=== PATIENT | male | born 1975 | race Caucasian/White ===

== ENCOUNTER → 2020-11-17 10:34 | Outpatient (BNVA) | payer OTHER, MEDICAID, SELFPAY | PROVIDERS: PCP Nurse Practitioner Family; Visit Provider Surgery | DX: Z01.818 Encounter for other preprocedural examination (principal); E66.01 Morbid (severe) obesity due to excess calories; R06.02 Shortness of breath; Z68.45 Body mass index [BMI] 70 or greater, adult | CPT/HCPCS: 99202 ==

== ENCOUNTER → 2020-11-23 | Outpatient (REF) | payer OTHER, SELFPAY ==
[2020-11-22 09:20] VITALS: BMI 75.6
--- NOTE | 2020-11-22 09:41 | MHC.SHP ---
Pre-Procedural Eval Section B Chief Complaint: reflux Allergies: Allergies Allergy/AdvReac Type Severity Reaction Status Date / Time No Known Allergies Allergy Verified 11/17/20 11:37 Plan I have reviewed the history and physical and performed a pertinent physical examination on my patient. No changes have occurred unless specified.
--- NOTE | 2020-11-22 12:26 | HO.ANESPROP2 ---
HPI - Anesthesia Eval Consult details Narrative: 45yo M for Upper Endoscopy BMI = 75, Case reviewed with Dr Awad PENDING: EKG AND LABS ordered by Dr Costa outpatient. Needs preop per Dr Awad Pt no showed 11/23/20 [facility] Active Problems Active Problems: All Active Problems (Updated 11/17/20 @ 12:03 by Daniela Costa MD) Chest pain (Acute) BMI 70 and over, adult (Acute) SOB (shortness of breath) (Acute) Morbid obesity (Acute) Pre-op evaluation (Acute) Past Medical History Medical History (Updated 11/17/20 @ 12:03 by Daniela Costa MD) Chest pain Hypercholesterolemia Sleep apnea Type 2 diabetes mellitus Family History Family History (Updated 11/17/20 @ 10:56 by Denisse Quigley MA) Father No problems noted. Mother Acute arthritis Heart problem Hypertension Son No problems noted. Son No problems noted. Son No problems noted. Brother Super obese Sleep apnea Surgical History Surgical History (Updated 11/17/20 @ 10:54 by Denisse Quigley MA) History of sleeve gastrectomy Social History Social History (Updated 11/17/20 @ 10:56 by Denisse Quilgey MA) Alcohol intake: never Smoking Status: Never smoker Meds Allergies Allergy/AdvReac Type Severity Reaction Status Date / Time No Known Allergies Allergy Verified 11/17/20 11:37 Home Medications Medication Instructions Recorded Confirmed Last Taken Type ascorbic acid (vitamin C) 250 mg 250 mg PO DAILY 11/17/20 11/17/20 Unknown History tablet atorvastatin 40 mg tablet 40 mg PO DAILY 11/17/20 11/17/20 Unknown History calcium carbonate 200 mg calcium 200 mg PO BID 11/17/20 11/17/20 Unknown History (500 mg) chewable tablet calcium-vitamin D3-vitamin K 500 tab PO 11/17/20 11/17/20 Unknown History mg-200 unit-40 mcg tablet cholecalciferol (vitamin D3) 25 25 mcg PO DAILY 11/17/20 11/17/20 Unknown History mcg (1,000 unit) capsule mecobalamin (vitamin B12) 5,000 5,000 mcg PO DAILY 11/17/20 11/17/20 Unknown History mcg lozenge metformin 1,000 mg tablet 1,000 mg PO BID 11/17/20 11/17/20 Unknown History multivitamin with minerals-folic tab PO 11/17/20 11/17/20 Unknown History acid 200 mcg chewable tablet Exam Exam Date and Time: November 22, 2020 1226 Height,Weight and Vital Signs: Height 5 ft 9 in Weight 232.239 kg Assessment and Plan Assessment Anesthesia Assessment: Chart Reviewed
--- NOTE | 2020-11-22 14:13 | ECG_ITS ---
Test Reason : SOB Blood Pressure : / mmHG Vent. Rate : 078 BPM Atrial Rate : 078 BPM P-R Int : 146 ms QRS Dur : 098 ms QT Int : 370 ms P-R-T Axes : 047 046 035 degrees QTc Int : 421 ms Normal sinus rhythm Normal ECG No previous ECGs available Referred By: Daniela Vann Electronically Signed By:Beto Villeda
== END ==
LOC: HO.CARD
PROVIDERS: PCP Physician Assistant Medical; Visit Provider Surgery
DX: R06.02 Shortness of breath (principal)
CPT/HCPCS: 93005; J2250; J3010

== ENCOUNTER 2020-11-30 06:10 | Day surgery (SDC) | payer OTHER, SELFPAY ==
--- NOTE | 2020-11-29 10:00 | HO.ANESPROP2 ---
Documented by User: Sonja Patel 11/29/20 10:01 HPI - Anesthesia Eval Consult details Narrative: 45yo M for Upper Endoscopy BMI = 75, Case reviewed with Dr Ritesh KNAPP Active Problems Active Problems: All Active Problems (Updated 11/17/20 @ 12:03 by Daniela Vann MD) Chest pain (Acute) BMI 70 and over, adult (Acute) SOB (shortness of breath) (Acute) Morbid obesity (Acute) Pre-op evaluation (Acute) Past Medical History Medical History (Updated 11/30/20 @ 07:43 by Zainab Dooley) Chest pain Hypercholesterolemia Sleep apnea Type 2 diabetes mellitus Family History Family History Father No problems noted. Mother Acute arthritis Heart problem Hypertension Son No problems noted. Son No problems noted. Son No problems noted. Brother Super obese Sleep apnea Surgical History Surgical History History of sleeve gastrectomy Social History Social History Alcohol intake: never Smoking Status: Never smoker Use of substances other than those prescribed or required for medical reasons: No Advance Directives: No Advance Directives Information Provided: Yes Meds Allergies Allergy/AdvReac Type Severity Reaction Status Date / Time No Known Allergies Allergy Verified 11/17/20 11:37 Home Medications Medication Instructions Recorded Confirmed Last Taken Type ascorbic acid (vitamin C) 250 mg 250 mg PO DAILY 11/17/20 11/17/20 Unknown History tablet atorvastatin 40 mg tablet 40 mg PO DAILY 11/17/20 11/17/20 Unknown History calcium carbonate 200 mg calcium 200 mg PO BID 11/17/20 11/17/20 Unknown History (500 mg) chewable tablet calcium-vitamin D3-vitamin K 500 tab PO 11/17/20 11/17/20 Unknown History mg-200 unit-40 mcg tablet cholecalciferol (vitamin D3) 25 25 mcg PO DAILY 11/17/20 11/17/20 Unknown History mcg (1,000 unit) capsule mecobalamin (vitamin B12) 5,000 5,000 mcg PO DAILY 11/17/20 11/17/20 Unknown History mcg lozenge metformin 1,000 mg tablet 1,000 mg PO BID 11/17/20 11/17/20 Unknown History multivitamin with minerals-folic tab PO 11/17/20 11/17/20 Unknown History acid 200 mcg chewable tablet Exam Exam Date and Time: November 29, 2020 1000 Narrative Narrative: EKG 11/22/20 Vent. Rate : 078 BPM Atrial Rate : 078 BPM P-R Int : 146 ms QRS Dur : 098 ms QT Int : 370 ms P-R-T Axes : 047 046 035 degrees QTc Int : 421 ms Normal sinus rhythm Normal ECG No previous ECGs available Assessment and Plan Assessment Anesthesia Assessment: Chart Reviewed Documented by User: Zainab Dooley 11/30/20 07:57 PMF[facility] Past Medical History Medical History (Updated 11/30/20 @ 07:43 by Zainab Dooley) Chest pain Hypercholesterolemia Sleep apnea Type 2 diabetes mellitus Family History Family History Father No problems noted. Mother Acute arthritis Heart problem Hypertension Son No problems noted. Son No problems noted. Son No problems noted. Brother Super obese Sleep apnea Family history of problems with anesthesia: No Surgical History Surgical History History of sleeve gastrectomy History of Problems with Anesthesia: No (No h/o difficult intubation.) Social History Social History Alcohol intake: never Smoking Status: Never smoker Use of substances other than those prescribed or required for medical reasons: No Advance Directives: No Advance Directives Information Provided: Yes Meds Allergies Allergy/AdvReac Type Severity Reaction Status Date / Time No Known Allergies Allergy Verified 11/17/20 11:37 Home Medications Medication Instructions Recorded Confirmed Last Taken Type ascorbic acid (vitamin C) 250 mg 250 mg PO DAILY 11/17/20 11/17/20 Unknown History tablet atorvastatin 40 mg tablet 40 mg PO DAILY 11/17/20 11/17/20 Unknown History calcium carbonate 200 mg calcium 200 mg PO BID 11/17/20 11/17/20 Unknown History (500 mg) chewable tablet calcium-vitamin D3-vitamin K 500 tab PO 11/17/20 11/17/20 Unknown History mg-200 unit-40 mcg tablet cholecalciferol (vitamin D3) 25 25 mcg PO DAILY 11/17/20 11/17/20 Unknown History mcg (1,000 unit) capsule mecobalamin (vitamin B12) 5,000 5,000 mcg PO DAILY 11/17/20 11/17/20 Unknown History mcg lozenge metformin 1,000 mg tablet 1,000 mg PO BID 11/17/20 11/17/20 Unknown History multivitamin with minerals-folic tab PO 11/17/20 11/17/20 Unknown History acid 200 mcg chewable tablet Exam Height,Weight and Vital Signs: Vital Signs Temp Pulse Resp BP Pulse Ox 11/30/20 06:49 97.8 F 92 18 125/72 95 Pertinent Lab Results Pertinent Lab Results: Lab Results 11/30/20 11/30/20 Range/Units 06:18 06:18 POC Glucose 181 H (60-115) mg/dL COVID-19 (GOVIND) Negative (Negative) COVID-19 Clin Com See Note Airway Mallampati Class: II TM Dist: >3cm Neck ROM: Full Heart: RRR Lungs: CTAB Assessment and Plan Assessment Anesthesia Assessment: Anesthesia Plan Discussed and Chart Reviewed Final Anesthetic Review NPO: Yes ASA Class: III Final Preanesthetic Review: No Changes in Pt Med Stat, Meds/Allgs Chart Reviewed, Consent Obtained/Reviewed and Anes Risks/Benef Reviewed Patient Risk: Intermediate Procedure Risk: Low Assessment/Block/Sedation in SS: Assess/Block/Sedation-SS Anesthetic Plan Anesthetic Plan: GA Disposition: Standard PACU and Extended PACU
[2020-11-30 06:28] VITALS: BMI 73.4
[2020-11-30 06:49] VITALS: BP 125/72; PULSE 92; RESP 18; TEMP 36.6; O2SAT 95
[2020-11-30 06:53] LABS: COVID-19 Test Negative (Negative)
[2020-11-30 07:12] LABS: Glucose, Whole Blood 181 mg/dL (60-115)
[2020-11-30] MEDS: Lactated Ringers 1,000 ML 50 ML IV (07:19)
[2020-11-30 08:13] VITALS: BP 147/97; PULSE 81; RESP 21; TEMP 37.2; O2SAT 98
[2020-11-30 08:18] VITALS: BP 117/66; PULSE 82; RESP 20; O2SAT 98
--- NOTE | 2020-11-30 08:22 | PM.OP ---
Brief Operative Note Date of Service: 11/30/20 Pre-op diagnosis: Morbid obesity, history of gastric sleeve and weight gain following weight loss surgery Post-op diagnosis: other (Antral polyps and gastritis) Procedure: Esophagogastroduodenoscopy, biopsy antral polyps x2, biopsy antral gastritis x2 Implants: None Surgeon: Daniela Vann MD Anesthesia: GETA Estimated blood loss (mL): 0 Pathology: other (Antral polyps and antral biopsy) Condition: stable Disposition: PACU
[2020-11-30 08:23] VITALS: BP 130/94; PULSE 80; RESP 20; O2SAT 92
--- NOTE | 2020-11-30 08:25 | P.OP_ITS ---
Operative Note Operative Note Date of Service: 11/30/20 Narrative: Patient was brought into the operating room on the stretcher and placed in the supine position. General anesthesia was induced. Patient did not require preoperative antibiotics. Safety time-out was performed. A gastroscope was placed in the posterior oropharynx and passed to the esophagus under direct vision. The esophageal mucosa was evaluated and was normal down to the level of the GE junction. Z-line was located at 43 cm from the incisors. There was no evidence of hiatal hernia. The gastroscope was passed into the gastric pouch which was large for age. There was no evidence of torsion or stenosis. The g astroscope was passed to the antrum there was evidence of linear erythema and granularity which was biopsy x2. There were 2 small gastric polyps located at the pylorus which were biopsy x2. The gastroscope was passed through the pylorus into the duodenum down to the 3rd portion of duodenum all of which was normal. All of these portions of the upper endoscopy were document using photodocumentation. The gastroscope was retracted back into the stomach the stomach was desufflated and the gastroscope was removed without difficulty. Patient tolerated procedure well and was sent to the recovery room stable condition.
[2020-11-30 08:28] VITALS: BP 117/73; PULSE 81; RESP 20; TEMP 36.8; O2SAT 94
== END 2020-11-30 09:00 | disposition home or self-care (01) ==
PROVIDERS: PCP Physician Assistant Medical; Visit Provider Surgery
PROC: 0DJ08ZZ Inspection of Upper Intestinal Tract, Via Natural or Artificial Opening Endoscopic (ICD-10-PCS; CPT 43235; principal; 2020-11-30 07:30)
DX: K21.9 Gastro-esophageal reflux disease without esophagitis (principal); K31.7 Polyp of stomach and duodenum; K29.50 Unspecified chronic gastritis without bleeding; E11.9 Type 2 diabetes mellitus without complications; E66.01 Morbid (severe) obesity due to excess calories; Z79.84 Long term (current) use of oral hypoglycemic drugs; Z98.84 Bariatric surgery status; Z79.899 Other long term (current) drug therapy; Z68.45 Body mass index [BMI] 70 or greater, adult
CPT/HCPCS: 43239; 36415; 82947; 87635; 88305; 88342; J0330; J1100; J2250; J3010

== ENCOUNTER → 2020-12-02 08:20 | Outpatient (BNVA) | payer OTHER, SELFPAY | PROVIDERS: PCP Nurse Practitioner Family; Visit Provider Surgery ==

== ENCOUNTER 2020-12-08 08:52 | Outpatient (REF) | payer OTHER, SELFPAY ==
--- NOTE | ~2020-12-08 | XR_ITS ---
EXAMINATION: XR CHEST CLINICAL INFORMATION: R06.02 - Shortness of breath. COMPARISON: None. TECHNIQUE: Frontal view and 2 lateral views are obtained for a total of 3 views. FINDINGS: There is no airspace consolidation, focal ground-glass opacity or air bronchograms. No hyperinflation. The costophrenic sulci are clear. The heart is normal in size. The vascularity is normal. The hilar and mediastinal contours are unremarkable. There are mild degenerative changes thoracic spine. XR/XR chest 2V IMPRESSION: Unremarkable examination.
[2020-12-08 11:16] LABS: MANUAL DIFF FLAG NO
[2020-12-08 11:18] LABS: Basophils Percent Auto 0.4 % (0-2); Eosinophils Absolute Auto 0.1 X10*3/uL (0.0-0.4); Eosinophils Percent Auto 1.8 % (0-4); Hematocrit 40.2 % (42-52); Hemoglobin 12.7 g/dl (14.0-18.0); Imm Gran Abs Auto 0.04 X10*3/uL (0.00-0.03); Imm Gran Pct Auto 0.5 % (0.0-0.4); Lymphocytes Absolute Auto 1.6 X10*3/uL (1.2-4.9); Lymphocytes Percent Auto 21.8 % (20-40); Mean Corpuscular HGB Conc 31.6 g/dl (31.0-36.0); Mean Corpuscular Hemoglobin 27.7 pg (27.0-33.0); Mean Corpuscular Volume 87.6 fL (80-98); Mean Platelet Volume 10.9 fL (9.4-12.4); Monocytes Absolute Auto 0.5 X10*3/uL (0.1-1.2); Monocytes Percent Auto 6.3 % (2-11); Neutrophils Absolute Auto 5.1 X10*3/uL (2.0-8.3); Neutrophils Percent Auto 69.2 % (45-73); Platelet Count 320 X10*3/uL (160-400); Red Blood Count 4.59 X10*6/uL (4.60-5.80); Red Cell Distribution Width 13.3 % (11.0-16.0); White Blood Count 7.3 X10*3/uL (4.8-10.8)
[2020-12-08 11:30] LABS: Estimated Average Glucose 255 mg/dL; Hemoglobin A1c % 10.5 %
[2020-12-08 11:55] LABS: Alanine Aminotransferase 27 U/L (0-40); Albumin Level 4.1 g/dL (3.5-5.0); Alkaline Phosphatase 85 U/L (39-117); Anion Gap 13 (12-20); Aspartate Amino Transferase 17 U/L (5-37); Bilirubin Total 0.8 mg/dL (0.0-1.0); Blood Urea Nitrogen 12 mg/dL (9-16); C Reactive Protein 3.89 mg/dL (< or = 0.50); Calcium 9.2 mg/dL (8.4-10.2); Carbon Dioxide 31 mmol/L (22-29); Chloride 99 mmol/L (96-108); Cholesterol 135 mg/dL; Estimated Glomerular Filt Rate > 60; Glucose Fasting 159 mg/dL (60-99); HDL Cholesterol 30 mg/dL; Iron 64 mcg/dL (45-160); LDL Cholesterol Calculated 85 mg/dl; Percent Iron Saturation 21 % (15-50); Potassium 4.3 mmol/L (3.3-5.1); Sodium 139 mmol/L (135-145); Total Iron Binding Capacity 306 mcg/dL (228-428); Total Protein 7.8 g/dL (6.5-8.0); Triglycerides 100 mg/dL; Unsaturated Iron Binding 242 ug/dL
[2020-12-08 12:17] LABS: Vitamin D 25-OH Total 24.2 ng/mL (>30)
[2020-12-08 12:51] LABS: Vitamin B12 1262 pg/mL (200-900)
[2020-12-09 12:46] LABS: Calcium (PTHI) 9.1 mg/dL (8.6-10.3); PTHI 49 pg/mL (14-64)
[2020-12-11 16:51] LABS: Zinc 60 mcg/dL (60-130)
[2020-12-12 06:41] LABS: Vitamin B1 7 nmol/L (8-30)
[2020-12-13 17:21] LABS: Vitamin A 28 mcg/dL (38-98)
== END 2020-12-08 08:53 | disposition home or self-care (01) ==
LOC: HO.XRAY 08:52
PROVIDERS: Absent Provider Surgery; PCP Nurse Practitioner Family; Visit Provider Physician Assistant
DX: K91.2 Postsurgical malabsorption, not elsewhere classified (principal); E66.01 Morbid (severe) obesity due to excess calories; Z68.45 Body mass index [BMI] 70 or greater, adult; R06.02 Shortness of breath; Z90.3 Acquired absence of stomach [part of]
CPT/HCPCS: 36415; 71046; 80053; 80061; 82306; 82607; 83036; 83540; 83970; 84425; 84443; 84590; 84630; 85025; 86140; 99212

== ENCOUNTER 2020-12-15 08:36 | Outpatient (REF) | payer OTHER, SELFPAY ==
[2020-12-16 13:46] LABS: H Pylori Breath Test NOT DETECTED (NOT DETECTED)
== END 2020-12-15 08:37 | disposition home or self-care (01) ==
LOC: HO.LNP 08:36
PROVIDERS: Surgery; PCP Nurse Practitioner Family; Visit Provider Physician Assistant
DX: Z01.818 Encounter for other preprocedural examination (principal); Z11.0 Encounter for screening for intestinal infectious diseases
CPT/HCPCS: 83013; 99211

== ENCOUNTER → 2020-12-19 08:14 | Outpatient (BNVA) | payer OTHER, SELFPAY | PROVIDERS: PCP Nurse Practitioner Family; Visit Provider Dietitian, Registered | DX: E66.9 Obesity, unspecified (principal); Z68.45 Body mass index [BMI] 70 or greater, adult | CPT/HCPCS: 97802 ==

== ENCOUNTER → 2021-02-14 09:24 | Outpatient (BNVA) | payer OTHER, SELFPAY | PROVIDERS: PCP Nurse Practitioner Family; Referring Provider Nurse Practitioner Family; Visit Provider Physician Assistant | DX: E66.01 Morbid (severe) obesity due to excess calories (principal); Z68.45 Body mass index [BMI] 70 or greater, adult | CPT/HCPCS: 99212 ==

== ENCOUNTER → 2021-03-21 08:09 | Outpatient (BNVA) | payer OTHER, SELFPAY | PROVIDERS: PCP Nurse Practitioner Family; Visit Provider Dietitian, Registered | DX: E66.9 Obesity, unspecified (principal); Z68.45 Body mass index [BMI] 70 or greater, adult | CPT/HCPCS: 97803 ==

== ENCOUNTER 2021-06-13 11:37 | Emergency (ER) | payer OTHER, SELFPAY ==
--- NOTE | ~2021-06-13 | XR_ITS ---
EXAMINATION: XR ABDOMEN KUB CLINICAL INDICATION: Abdominal pain. Constipation. COMPARISON: None TECHNIQUE: AP views of the abdomen. FINDINGS: Mild to moderate stool burden. Nonobstructive bowel gas pattern. Phleboliths within the pelvis. No acute osseous abnormality. XR/XR KUB IMPRESSION: Mild to moderate stool burden.
[2021-06-13 12:53] VITALS: BP 153/73; PULSE 80; RESP 18; TEMP 36.8; O2SAT 96; BMI 78.9
--- NOTE | 2021-06-13 13:23 | ED.ABDPAIN ---
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 Mode of arrival: ambulatory Limitations: no limitations History of Present Illness MD elicited complaint: abdominal pain Pertinent past history: none Onset (ago): day(s) (2) Pain Consistency: intermittent Location: RLQ Severity: mild Quality: aching Radiation: none Migration to: no migration Exacerbating factors: nothing Relieving factors: nothing Associated symptoms: nausea Related Data Home Medications Medication Instructions Recorded Confirmed ascorbic acid (vitamin C) 250 mg 250 mg PO DAILY 11/17/20 02/14/21 tablet atorvastatin 40 mg tablet 40 mg PO DAILY 11/17/20 02/14/21 calcium carbonate 200 mg calcium 200 mg PO BID 11/17/20 02/14/21 (500 mg) chewable tablet (Antacid (calcium carbonate)) calcium-vitamin D3-vitamin K 500 tab PO 11/17/20 02/14/21 mg-200 unit-40 mcg tablet cholecalciferol (vitamin D3) 25 25 mcg PO DAILY 11/17/20 02/14/21 mcg (1,000 unit) capsule mecobalamin (vitamin B12) 5,000 5,000 mcg PO DAILY 11/17/20 02/14/21 mcg lozenge metformin 1,000 mg tablet 1,000 mg PO BID 11/17/20 02/14/21 multivitamin with minerals-folic tab PO 11/17/20 02/14/21 acid 200 mcg chewable tablet (One-A-Day Men VitaCraves) Previous Rx's Medication Instructions Recorded vitamin A palmitate 10,000 unit 20,000 unit PO DAILY 30 Days #60 12/14/20 tablet tab magnesium citrate 150 ml PO BID PRN #296 ml 06/13/21 Allergies Allergy/AdvReac Type Severity Reaction Status Date / Time No Known Allergies Allergy Verified 06/13/21 12:52 Review of Systems Review of Systems Constitutional : No Weight loss, No Fever, No Chills ENT/Mouth : No sore throat, No Rhinorrhea Eyes: No Swelling, No Redness Cardiovascular : No Chest Pain, No SOB, NoEdema Respiratory : No Cough, No Sputum, No Wheezing Gastrointestinal : Positive Nausea, no Vomiting, no Diarrhea, positive abdominal Pain, No Hematochezia, No Melena, pos constipation Genitourinary : No Dysuria, No Urinary Frequency, No Hematuria, No Urgency Musculoskeletal : No joint pain, No Myalgias, No Joint Swelling Skin : No Skin Lesions, No rash Neuro : No Weakness, No Numbness, No Dizziness, No Headache Psych : No Anxiety/Panic, No Depression Heme/Lymph: No Bruising, No Lymphadenopathy Endocrine : No Polyuria, No Polydipsia All other systems reviewed and are negative. Physical Exam Vital Signs: Vital Signs: Last Vital Signs Temp 98.3 F 06/13/21 12:53 Pulse 72 06/13/21 13:37 Resp 20 06/13/21 13:37 BP 107/61 06/13/21 13:37 Pulse Ox 97 06/13/21 13:37 Body Mass Index 73.9 Appearance: Alert. Oriented X3. No acute distress. Eyes: Pupils equal, round and reactive to light. ENT: Pharynx normal. Neck: Normal inspection. Neck supple. CVS: Normal heart rate and rhythm. Pulses normal. Respiratory: No respiratory distress. Breath sounds normal. Abdomen: Soft and nontender. morbidly obese but he doesn't report any pain to palpation Skin: Skin warm and dry. Normal skin color. Normal skin turgor. Extremities: No lower extremity edema. No calf ttp Neuro: Oriented X 3. No motor deficit. No sensory deficit. Course Course Course Narrative: no pain again on exam, denies vomiting, likely constipation will send home with precautions no hematuria no prior kidney stones, in no pain no complaints doubt UTI MDM - Abdominal Pain MDM Narrative Medical decision making narrative: 45 yo male with RLQ pain intermittent with constipation and some nausea - he is overall having a benign exam I don't even have ttp on my exam - will obtain basic labs, KUB for constipation, PO medications, he is unfortunately too obese for our CT scanner but his abdomen is very benign so infection like appendicitis seems unlikely, he is also not in pain so SBO seems also unlikely. Lab Data Result diagrams: 06/13/21 13:46 06/13/21 13:46 Labs: Lab Results 06/13/21 06/13/21 Range/Units 13:46 13:46 WBC 11.1 H (4.8-10.8) X10*3/uL RBC 4.41 L (4.60-5.80) X10*6/uL Hgb 11.7 L (14.0-18.0) g/dl Hct 37.0 L (42-52) % MCV 83.9 (80-98) fL MCH 26.5 L (27.0-33.0) pg MCHC 31.6 (31.0-36.0) g/dl RDW 14.6 (11.0-16.0) % Plt Count 291 (160-400) X10*3/uL MPV 10.6 (9.4-12.4) fL Immature Gran % (Auto) 0.3 (0.0-0.4) % Neut % (Auto) 83.4 H (45-73) % Lymph % (Auto) 9.0 L (20-40) % [place] % (Auto) 6.9 (2-11) % Eos % (Auto) 0.2 (0-4) % Baso % (Auto) 0.2 (0-2) % Lymph # (Auto) 1.0 L (1.2-4.9) X10*3/uL [place] # (Auto) 0.8 (0.1-1.2) X10*3/uL Eos # (Auto) 0.0 (0.0-0.4) X10*3/uL Baso # (Auto) 0.0 (0.0-0.2) X10*3/uL Abs Immat Gran (auto) 0.03 (0.00-0.03) X10*3/uL Absolute Neuts (auto) 9.3 H (2.0-8.3) X10*3/uL Absolute Nucleated RBC 0.000 (0.0-0.012) X10*3/uL Nucleated RBC % (auto) 0.0 (0.0-0.2) /100WBC Sodium 140 (135-145) mmol/L Potassium 5.0 (3.3-5.1) mmol/L Chloride 102 (96-108) mmol/L Carbon Dioxide 29 (22-29) mmol/L Anion Gap 14 (12-20) BUN 15 (9-16) mg/dL Creatinine 0.84 (0.5-1.4) mg/dL Estim Creat Clear Calc 213.3 Estimated GFR > 60 Random Glucose 129 H (60-115) mg/dL Calcium 9.1 (8.4-10.2) mg/dL Total Bilirubin 0.6 (0.0-1.0) mg/dL Direct Bilirubin 0.2 (0.0-0.5) mg/dL AST 22 (5-37) U/L ALT 19 (0-40) U/L Alkaline Phosphatase 76 (39-117) U/L Total Protein 7.7 (6.5-8.0) g/dL Albumin 3.8 (3.5-5.0) g/dL Lipase 17 (8-78) U/L Discharge Plan Discharge Clinical Impression: Constipation Qualifiers: Constipation type: unspecified constipation type Qualified Code(s): K59.00 - Constipation, unspecified Abdominal pain Qualifiers: Abdominal location: right lower quadrant Qualified Code(s): R10.31 - Right lower quadrant pain Instructions: Constipation (ED), Abdominal Pain (ED) Additional Instructions: return to ED for any worsening symptoms or concerns Prescriptions: New magnesium citrate Solution 150 ml PO BID PRN (Reason: constipation) Qty: 296 RF: 0 No Action vitamin A palmitate 10,000 unit tablet 20,000 unit PO DAILY 30 Days Qty: 60 RF: 1 metformin 1,000 mg tablet 1,000 mg PO BID RF: 0 atorvastatin 40 mg tablet 40 mg PO DAILY RF: 0 cholecalciferol (vitamin D3) 25 mcg (1,000 unit) capsule 25 mcg PO DAILY RF: 0 mecobalamin (vitamin B12) 5,000 mcg lozenge 5,000 mcg PO DAILY RF: 0 calcium-vitamin D3-vitamin K 500-200-40 mg-unit-mcg tablet PO RF: 0 One-A-Day Men VitaCraves 200 mcg tablet,chewable PO RF: 0 calcium carbonate [Antacid (calcium carbonate)] 200 mg calcium (500 mg) tablet,chewable 200 mg PO BID RF: 0 ascorbic acid (vitamin C) 250 mg tablet 250 mg PO DAILY RF: 0 Referrals: Physician,Unknown J [Primary Care Provider] - 2 days (if not better) Print Language: Citizen Of [place] [facility] Past Medical History Medical History Chest pain Hypercholesterolemia Sleep apnea Type 2 diabetes mellitus Surgical History History of sleeve gastrectomy Family History Family History Father No problems noted. Mother Acute arthritis Heart problem Hypertension Son No problems noted. Son No problems noted. Son No problems noted. Brother Super obese Sleep apnea Social History Social History Alcohol intake: never Patient Tobacco Use Status: Former Tobacco user Use of substances other than those prescribed or required for medical reasons: No Advance Directives: No Advance Directives Information Provided: Yes
[2021-06-13 13:37] VITALS: BP 107/61; PULSE 72; RESP 20; O2SAT 97
[2021-06-13 13:47] VITALS: BMI 73.9
[2021-06-13 13:53] LABS: MANUAL DIFF FLAG NO
[2021-06-13 13:59] LABS: Basophils Percent Auto 0.2 % (0-2); Eosinophils Percent Auto 0.2 % (0-4); Hemoglobin 11.7 g/dl (14.0-18.0); Imm Gran Abs Auto 0.03 X10*3/uL (0.00-0.03); Imm Gran Pct Auto 0.3 % (0.0-0.4); Mean Corpuscular HGB Conc 31.6 g/dl (31.0-36.0); Mean Corpuscular Hemoglobin 26.5 pg (27.0-33.0); Mean Corpuscular Volume 83.9 fL (80-98); Mean Platelet Volume 10.6 fL (9.4-12.4); Monocytes Absolute Auto 0.8 X10*3/uL (0.1-1.2); Monocytes Percent Auto 6.9 % (2-11); Neutrophils Absolute Auto 9.3 X10*3/uL (2.0-8.3); Neutrophils Percent Auto 83.4 % (45-73); Platelet Count 291 X10*3/uL (160-400); Red Blood Count 4.41 X10*6/uL (4.60-5.80); Red Cell Distribution Width 14.6 % (11.0-16.0); White Blood Count 11.1 X10*3/uL (4.8-10.8)
[2021-06-13 14:26] LABS: Alanine Aminotransferase 19 U/L (0-40); Albumin Level 3.8 g/dL (3.5-5.0); Alkaline Phosphatase 76 U/L (39-117); Anion Gap 14 (12-20); Aspartate Amino Transferase 22 U/L (5-37); Bilirubin Direct 0.2 mg/dL (0.0-0.5); Bilirubin Total 0.6 mg/dL (0.0-1.0); Blood Urea Nitrogen 15 mg/dL (9-16); Calcium 9.1 mg/dL (8.4-10.2); Carbon Dioxide 29 mmol/L (22-29); Chloride 102 mmol/L (96-108); Creatinine Clr Calc Pharmacy 213.3; Estimated Glomerular Filt Rate > 60; Glucose Random 129 mg/dL (60-115); Lipase 17 U/L (8-78); Sodium 140 mmol/L (135-145); Total Protein 7.7 g/dL (6.5-8.0)
[2021-06-13] MEDS: Ondansetron ODT 4 MG TAB.RAPDIS TRANSLINGU (15:10)
[2021-06-13] MEDS: Morphine Sulfate Immed Release 15 MG TABLET PO (15:10)
[2021-06-13 15:44] VITALS: BP 115/67; PULSE 72; RESP 22; TEMP 36.8; O2SAT 98
[2021-06-13 15:50] LABS: Appearance Urine CLEAR; Color Urine YELLOW; Glucose Urine UA NEG (NEG); Leukocyte Esterase Urine NEG (NEG); Nitrite Urine NEG (NEG); PH 6.5 (5.0-8.0); UACC Culture Trigger NO; Urine Blood 1+ (NEG); Urine Ketones NEG (NEG); Urine Protein TRACE MG/DL (NEG-TRACE)
[2021-06-13 15:59] LABS: Squamous Epithelial Cell Urine TRACE /LPF
== END 2021-06-13 16:03 | disposition home or self-care (01) ==
PROVIDERS: Emergency Provider Emergency Medicine
DX: R10.31 Right lower quadrant pain (principal); K59.00 Constipation, unspecified; E11.9 Type 2 diabetes mellitus without complications; E66.9 Obesity, unspecified; Z68.45 Body mass index [BMI] 70 or greater, adult
CPT/HCPCS: 36415; 74018; 80048; 80076; 81001; 83690; 85025; 99283; 99284